=== PATIENT | female | born 1995 | race Caucasian/White ===

== ENCOUNTER 2016-09-08 20:43 | Emergency (ER) | payer OTHER, MEDICAID ==
[2016-09-08] MEDS ORDERED: IOPAMIDOL 370 (76%) IV.SOLN 150 ML IV ONE (20:44)
[2016-09-08 22:26] LABS: ABSOLUTE NEUTROPHIL COUNT 5.2 K/mm3 (1.8-7.7); BASO # 0.1 K/mm3 (0.0-0.2); BASO % 0.6 % (0.2-1.0); EOS # 0.4 (0.0-0.5); EOS % 3.7 % (0.9-2.9); HEMATOCRIT 39.3 % (37.0-47.0); HEMOGLOBIN 13.1 gm/l (12.0-16.0); IMM NEUT% 0.4 % (0-1); LYMPH # 4.1 (1.0-4.8); LYMPH % 37.9 % (15-45); MEAN CELL VOLUME 87.1 fl (81.0-99.0); MEAN CORPUSCULAR HGB CONC 33.3 g/dl (33.0-37.0); MEAN PLATELET VOLUME 8.7 fl (7.4-10.4); MONO % 8.9 % (4-12); NEUT % 48.5 % (43-75); PLATELET COUNT 399 K/mm3 (130-400); RED CELL DISTRIBUTION WIDTH 12.9 % (11.5-14.5); URINE APPEARANCE CLEAR; URINE BILIRUBIN NEGATIVE (NEGATIVE); URINE BLOOD NEGATIVE (NEGATIVE); URINE COLOR YELLOW; URINE GLUCOSE (UA) NEGATIVE (NEGATIVE); URINE LEUKOCYTE ESTERASE 1+ (NEGATIVE); URINE NITRITE NEGATIVE (NEGATIVE); URINE PROTEIN NEGATIVE (NEGATIVE); URINE UROBILINOGEN NORMAL (0-1 mg/dl)
[2016-09-08 22:27] LABS: HCG,QUALITATIVE URINE NEGATIVE
[2016-09-08] MEDS ORDERED: SODIUM CHLORIDE 0.9% 1,000 ML ONE (22:32)
[2016-09-08 22:38] LABS: URINE BACTERIA 2+; URINE EPITHELIAL CELLS MANY /hpf; URINE MUCUS 2+; URINE RBC 0-1 /hpf
[2016-09-08 22:49] LABS: ALB/GLOB RATIO 1.6 (>1.0); ALBUMIN 4.5 gm/dL (3.5-5.7); CALCIUM 9.9 mg/dL (8.6-10.3)
[2016-09-08] MEDS ORDERED: ONDANSETRON 4 MG/2ML 2 ML VIAL ONE (23:38)
[2016-09-09] MEDS ORDERED: HYDROCODONE/ACETAMINOPHEN 5/325MG TABLET ONE (00:48)
--- NOTE | 2016-09-09 08:42 | CT ---
Exam: CT abdomen and pelvis with contrast COMPARISON: 05/22/2016 INDICATION: Right lower quadrant pain. TECHNIQUE: CT examination of the abdomen and pelvis was obtained following the administration of 125 mL Isovue-370 intravenous contrast. FINDINGS: The bowel, including the appendix, is unremarkable and there is no bowel obstruction, free air or free intraperitoneal fluid. There is no pelvic lymphadenopathy or fluid collection. IUD is noted within the retroverted uterus. There is no adnexal mass. Hepatic steatosis. Spleen is at the upper limits of normal measuring 13.9 cm. Gallbladder is absent. Pancreas is within normal limits. There is no adrenal mass. Kidneys are unremarkable. Miniscule fat-containing periumbilical hernia is noted. 5 mm nodule is present within the right lower lobe, unchanged and probably of no clinical concern. Lung bases are otherwise clear. No worrisome osseous abnormality is identified. IMPRESSION: No acute findings identified to explain right lower quadrant pain. Stable exam since 05/22/2016 without significant interval change. Preliminary report transmitted to the emergency department from [place] at 2324 hours 09/08/2016.
[2016-09-10 14:44] LABS: CHLAMYDIA BD Negative (Negative); N.GONORRHOEAE BD Negative (Negative); SOURCE Urine (())
== END 2016-09-09 01:01 | disposition home or self-care (01) ==
LOC: ED 20:43
DX: R10.31 Right lower quadrant pain (principal); R11.0 Nausea; F17.210 Nicotine dependence, cigarettes, uncomplicated
CPT/HCPCS: 83690; 87491; 87591; 81025; 85025; 80053; 81001; 74177; 99284 ×2; 96374; 96361; J2405; J7030; A9270; Q9967